=== PATIENT | female | born 1955 | race African-American/Black ===

== ENCOUNTER 2020-07-18 13:42 | Emergency (ER) | payer OTHER ==
[2020-07-18 13:50] VITALS: BP 161/77; PULSE 81; TEMP 99; BMI 37.0
[2020-07-18] MEDS ORDERED: IBUPROFEN 600 MG TABLET (FP) PO ONE ×2 (14:02→14:09)
[2020-07-18] MEDS ORDERED: ACETAMINOPHEN 500 MG TABLET (FP) PO ONE (14:02)
[2020-07-18] MEDS ORDERED: ACETAMINOPHEN 500 MG TABLET (FP) ONE (14:09)
== END 2020-07-18 16:04 | disposition home or self-care (01) ==
LOC: FER 13:42
DX: M25.511 Pain in right shoulder (principal); M25.561 Pain in right knee; R07.9 Chest pain, unspecified
CPT/HCPCS: 71101-TC-RT-FY; 73030-TC-RT-FY; 73523-TC-FY; 73560-TC-RT-FY; 99285-25

== ENCOUNTER 2023-11-27 09:14 | Emergency (ER) | payer OTHER, BC ==
[2023-11-27 09:20] VITALS: BP 124/60; PULSE 82; RESP 16; TEMP 97.6; BMI 34.9
[2023-11-27] MEDS ORDERED: ACETAMINOPHEN INJECTION 100 ML IVPB ONE (09:45)
[2023-11-27] MEDS: ACETAMINOPHEN 1000 MG/100 ML BAG IVPB ONE (10:20)
[2023-11-27 10:51] LABS: HEMATOCRIT 39.7 % (32.4-45.2); HEMOGLOBIN 12.8 G/dL (10.7-15.3); MCH 30.6 pg (25.7-33.7); MCHC 32.3 g/dl (32.0-36.0); MEAN CELL VOLUME 94.8 fl (80-96); MEAN PLT VOLUME 7.2 fl (7.5-11.1); PLATELET COUNT 300.6 10^3/uL (134-434); RBC 4.19 10^6/uL (3.60-5.2); RDW 14.2 % (11.6-15.6)
[2023-11-27 10:57] LABS: ALBUMIN 4.4 g/dl (3.4-5.0); ALK PHOS 55 U/L (45-117); ANION GAP 8 mmol/L (4-13); BILIRUBIN,TOTAL 0.4 mg/dl (0.2-1); CHLORIDE 102 mmol/L (98-107); CO2 26 mmol/L (21-32); CREATININE 1.1 mg/dl (0.6-1.3); GLUCOSE,RANDOM 91 mg/dl (74-106); POTASSIUM 4.2 mmol/L (3.5-5.1); SGOT/AST 14 U/L (15-37); SGPT/ALT 15 U/L (7-52); SODIUM 136 mmol/L (136-145); TOT PROT 6.9 g/dl (6.4-8.2)
[2023-11-27 11:05] LABS: PLATELET ESTIMATE ADEQUATE
== END 2023-11-27 15:33 | disposition home or self-care (01) ==
LOC: FER 09:14
PROC: 3E033NZ Introduction of Analgesics, Hypnotics, Sedatives into Peripheral Vein, Percutaneous Approach (ICD-10-PCS; principal; 2023-11-27)
DX: L03.818 Cellulitis of other sites (principal); T81.89XA Other complications of procedures, not elsewhere classified, initial encounter
CPT/HCPCS: 36415; 74177-TC; 80053; 85027; 87040; 87070; 87205; 99285-25; J0131; Q9967